=== PATIENT | female | born 1975 | race Caucasian/White ===

== ENCOUNTER → 2018-08-25 | Day surgery (SDC) | payer OTHER ==
--- NOTE | 2018-08-27 18:10 | PATH ---
Cytology Non-Gynecological Report Patient Name: JAHAIRA FERRELL [facility]. Rec. #: [id number] /Age/Gender: 1975 (Age: 43) / F Account: [id number] Location: RADIOLOGY INTER Taken: 08/25/2018 Received: 08/25/2018 Reported: 08/27/2018 Physicians: Ronan Iglesias M.D. Specimen(s) Received THYROID FNA RIGHT Clinical History Right thyroid nodule, 0.75 x 0.63 x 0.36 cm Final Diagnosis THYROID, RIGHT, FINE NEEDLE ASPIRATION: SATISFACTORY FOR EVALUATION. BETHESDA CLASS II: BENIGN. CYTOLOGIC FINDINGS ARE CONSISTENT WITH A BENIGN FOLLICULAR NODULE. SMALL FOLLICULAR CELLS AND ABUNDANT COLLOID PRESENT. Electronically Signed Chel Zabala M.D. Gross Description Received are eight direct smears, four of which are air-dried and Diff-Quik stained, and four of which are alcohol fixed and Pap stained. Also received is 20 ml of bloody formalin from which one cellblock is prepared.
== END | disposition home or self-care (01) ==
LOC: JRADIR 09:41
PROVIDERS: ATTEND Internal Medicine
PROC: 0G9H3ZX Drainage of Right Thyroid Gland Lobe, Percutaneous Approach, Diagnostic (ICD-10-PCS; principal; 2018-08-25)
PROC: BG44ZZZ Ultrasonography of Thyroid Gland (ICD-10-PCS; 2018-08-25)
DX: E04.1 Nontoxic single thyroid nodule (principal)
CPT/HCPCS: 76942; 88173; 88305-TC

== ENCOUNTER 2019-02-27 12:00 | Emergency (ER) | payer OTHER ==
[2019-02-27 12:07] VITALS: BP 115/71; PULSE 78; TEMP 98.1; BMI 23.6
[2019-02-27] MEDS ORDERED: ALBUTEROL SO4 2.5/IPRATROPIUM 0.5 INH SOL 3 ML VIAL.NEB. NEB ONE (12:57)
--- NOTE | 2019-02-27 12:57 | PDOC ---
History of Present Illness - General Chief Complaint: Respiratory Stated Complaint: COUGHING/ ALLERGIES Time Seen by Provider: 02/27/19 12:50 History Source: Patient Exam Limitations: No Limitations - History of Present Illness Initial Comments: 02/27/19 12:58 Is here with 2 days of cough, congestion, postnasal drainage and sinus headache pain. Denies fever, denies purulent drainage from nose. States he is Claritin with some resolve. Timing/Duration: reports: getting worse Severity: reports: mild Past History - Travel Traveled outside of the country in the last 30 days: No Close contact w/someone who was outside of country & ill: No - Past Medical History Allergies/Adverse Reactions: Allergies Allergy/AdvReac Type Severity Reaction Status Date / Time No Known Allergies Allergy Verified 02/27/19 12:07 Home Medications: Ambulatory Orders Cyclobenzaprine HCl [Flexeril 10 mg] 10 mg PO HS PRN #10 tablet 01/18/18 Ibuprofen [Motrin -] 600 mg PO TID #30 tablet 01/18/18 metFORMIN HCL [Metformin HCl ER] 500 mg PO ASDIR 01/18/18 Albuterol Sulfate [Proventil HFA Inhaler -] 1 - 2 inh PO QID #1 inhaler COPD: No Diabetes: Yes - Suicide/Smoking/Psychosocial Hx Smoking History: Never smoked Hx Alcohol Use: No Drug/Substance Use Hx: No Review of Systems - Review of Systems Able to Perform ROS?: Yes Is the patient limited Hungarian proficient: Yes Constitutional: Yes: Symptoms Reported, See HPI, Malaise. No: Chills, Fever, Loss of Appetite HEENTM: Yes: Symptoms Reported, See HPI, Nose Congestion. No: Mouth Swelling Respiratory: Yes: Symptoms reported, See HPI, Cough, Wheezing Cardiac (ROS): No: Symptoms Reported ABD/GI: Yes: See HPI. No: Symptoms Reported : No: Symptoms Reported Integumentary: Yes: See HPI. No: Symptoms Reported All Other Systems: Reviewed and Negative *Physical Exam - Vital Signs Last Vital Signs Temp Pulse Resp BP Pulse Ox 98.1 F 78 16 115/71 100 02/27/19 12:05 02/27/19 12:05 02/27/19 12:05 02/27/19 12:05 02/27/19 12:05 - Physical Exam General Appearance: Yes: Nourished, Appropriately Dressed, Apparent Distress, Mild Distress HEENT: positive: TMs Normal (congestion, worse on the right than the left but landmarks easily visualized), Rhinorrhea (ear drainage). negative: Pharyngeal Erythema (has posterior sinus drainage, but no swelling, redness or exudate noted to tonsils) Respiratory/Chest: positive: Lungs Clear (but mildly diminished with tight inspiratory and expiratory breath sounds,) Gastrointestinal/Abdominal: positive: Normal Bowel Sounds, Soft. 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 Will treat with albuterol inhaler to help with wheezing and ALLERGIC pulmonary responses. Have continue Claritin, and follow up with PMD *DC/Admit/Observation/Transfer Diagnosis at time of Disposition: Allergic rhinitis Qualifiers: Allergic rhinitis trigger: unspecified Allergic rhinitis seasonality: unspecified Qualified Code(s): J30.9 - Allergic rhinitis, unspecified - Discharge Dispostion Disposition: HOME Condition at time of disposition: Stable Decision to Admit order: No - Referrals Referrals: Chel Anguiano MD [Primary Care Provider] - - Patient Instructions Printed Discharge Instructions: DI for Allergic Rhinitis Additional Instructions: Rest, drink lots of fluids: Teas, water, soups Saltwater gargles. Consider humidifier in room at night Steamy showers/seem to face break up mucus Avoid contact with allergens, exposure to pollens, close windows on a windy day Lots of handwashing and good hygiene Continue [id number] medications for symptomatic relief- may use allergic eyedrops for itching I Continue antihistamines daily until pollen season is over; Zyrtec, Claritin, Annie during the daytime and Benadryl at nighttime as will make sleepy Continue albuterol inhaler 2 puffs 4 times a day for the next 3 days then as needed Tylenol or Motrin for fever and pain Followup with private physician in one to 2 days as needed Consider following up with an buffing machine tender/rn bsn for skin testing and possible allergy shots Return to emergency department for worsened symptoms, fevers, dehydration - Post Discharge Activity Forms/Work/School Notes: Back to Work
== END 2019-02-27 13:30 | disposition home or self-care (01) ==
LOC: JERFT 12:00
PROC: 3E0F7GC Introduction of Other Therapeutic Substance into Respiratory Tract, Via Natural or Artificial Opening (ICD-10-PCS; principal; 2019-02-27)
DX: J30.9 Allergic rhinitis, unspecified (principal); E11.9 Type 2 diabetes mellitus without complications; Z79.84 Long term (current) use of oral hypoglycemic drugs
CPT/HCPCS: 94640; 99282-25

== ENCOUNTER → 2019-07-11 | Day surgery (SDC) | payer OTHER ==
--- NOTE | 2019-07-12 11:03 | PATH ---
Surgical Pathology Report Patient Name: JAHAIRA FERRELL [facility]. Rec. #: [id number] /Age/Gender: 1975 (Age: 44) / F Account: [id number] Location: RADIOLOGY [facility] Taken: 07/11/2019 Received: 07/11/2019 Reported: 07/12/2019 Physicians: Pilar Queen M.D. Specimen(s) Received RIGHT BREAST CORE BIOPSY Clinical History Nonpalpable lesion, mass 1 cm Ultrasound findings: Probably benign, suspicious Final Diagnosis BREAST, MASS, RIGHT, 10-11:00, ULTRASOUND GUIDED CORE BIOPSY: FIBROADENOMA. FIBROCYSTIC CHANGES INCLUDING STROMAL FIBROSIS, USUAL DUCTAL HYPERPLASIA, AND ASSOCIATED MICROCALCIFICATIONS. Electronically Signed Chel Zabala M.D. Gross Description Received in formalin labeled "right breast 10-11:00," are 4 jordan-yellow, cylindrical portions of fibroadipose tissue ranging from 0.3-0.9 cm in length and averaging 0.1 cm in diameter. The specimens are submitted in toto in one cassette. Time to formalin fixation: Less than one minute Total formalin fixation time: Approximately 9 hours. DL/07/11/2019 saudi/07/11/2019
== END | disposition home or self-care (01) ==
LOC: JRADUS-SUR 08:23 → JRADUS 08:23
PROVIDERS: ATTEND Internal Medicine
PROC: 0H9T3ZX Drainage of Right Breast, Percutaneous Approach, Diagnostic (ICD-10-PCS; principal; 2019-07-11)
DX: D24.1 Benign neoplasm of right breast (principal)
CPT/HCPCS: 19083; 87899; 88305-TC; A4648

== ENCOUNTER → 2021-04-22 | Day surgery (SDC) | payer OTHER | END | disposition home or self-care (01) | LOC: JRADIR 10:24 | PROVIDERS: ATTEND Internal Medicine | PROC: 0G9K3ZX Drainage of Thyroid Gland, Percutaneous Approach, Diagnostic (ICD-10-PCS; principal; 2021-04-22) | DX: E04.1 Nontoxic single thyroid nodule (principal) | CPT/HCPCS: 10005; 76942; 88173; 88305-TC ==

== ENCOUNTER 2021-05-14 07:45 | Emergency (ER) | payer OTHER ==
[2021-05-14 07:59] VITALS: BP 121/78; PULSE 81; TEMP 98; BMI 24.3
[2021-05-14] MEDS ORDERED: METHOCARBAMOL 500 MG TABLET PO ONE (08:54)
[2021-05-14] MEDS ORDERED: ACETAMINOPHEN 500 MG TABLET (FP) PO ONE (08:54)
[2021-05-14] MEDS ORDERED: ACETAMINOPHEN 500 MG TABLET (FP) ONE (09:47)
[2021-05-14] MEDS ORDERED: METHOCARBAMOL 500 MG TABLET ONE (09:47)
== END 2021-05-14 10:00 | disposition home or self-care (01) ==
LOC: JER 07:45
DX: S83.92XA Sprain of unspecified site of left knee, initial encounter (principal); V89.9XXA Person injured in unspecified vehicle accident, initial encounter; Y92.9 Unspecified place or not applicable
CPT/HCPCS: 72100-TC-FY; 73562-TC-LT-FY; 99284-25